=== PATIENT | female | born 1965 | race Caucasian/White ===

== ENCOUNTER 2018-01-05 04:15 | Emergency (ER) | payer OTHER ==
[~2018-01-05] VITALS: Ht 167.6 cm; Wt 59.4 kg
[2018-01-05] MEDS ORDERED: ONDANSETRON 4 MG/2 ML VIAL ONE (04:24)
[2018-01-05] MEDS ORDERED: NS(*) 0.9% 1000 ML BAG 1,000 ML IV ONE ×2 (04:29→04:40)
[2018-01-05] MEDS ORDERED: fentaNYL CITR 100 MCG/2 ML AMP IVP ONE ×2 (04:40→05:55)
[2018-01-05] MEDS ORDERED: DICYCLOMINE HCL 10 MG CAP PO ONE (04:40)
[2018-01-05] MEDS ORDERED: DIAZEPAM 10 MG/2 ML SYR IVP ONE (04:40)
[2018-01-05 04:43] LABS: PLATELET COUNT, AUTOMATED 570 K/uL (150-450)
[2018-01-05] MEDS ORDERED: IOPAMIDOL 76% 75 ML INFUS BTL 75 ML ONE (05:41)
[2018-01-05] MEDS ORDERED: NS 0.9% 20 ML SDV 60 ML ONE (05:41)
--- NOTE | 2018-01-05 06:51 | RADIOLOGY IMAGING REPORT ---
FACILITY: [facility] - [place] PATIENT NAME: Marilin Mccabe : 1965 MR: [id number] V: [id number] EXAM DATE: ORDERING PHYSICIAN: JENNIFER JJ TECHNOLOGIST: Location: [facility] - [place], [place] Patient: Marilin Mccabe : 1965 Visit/Account:[id number] Date of Sevice: 01/05/2018 ABDOMEN/PELVIS WITH CONTRAST COMPARISONS: None. ADDITIONAL PERTINENT HISTORY: Upper abdominal pain and vomiting for one day. History of appendectomy 20+ years ago. TECHNIQUE: Multiple axial images were obtained from the lung bases through the lesser trochanters bef ore and after the IV administration of IV contrast. One of the following dose optimization technique s was utilized in the performance of this exam: Automated exposure control; adjustment of the mA and/ or kV according to the patient's size; or use of an iterative reconstruction technique. Specific de tails can be referenced in the facility's radiology CT exam operational policy. CONTRAST: 75 ml of Isovue-370 FINDINGS: Lung bases: Minimal bibasilar atelectatic change. Free air and free fluid: None. Liver: Negative. Spleen: Negative. Kidneys, ureters and urinary bladder: Small low-attenuation lesions involving both kidneys consistent with simple cysts. Adrenal glands: Negative. Pancreas: Negative. Gallbladder: Negative. Bowel and mesentery: Negative.. Pelvic contents: Negative Lymph node assessment: Negative. Retroperitoneum: Negative. Abdominal vasculature: Mild calcified atherosclerotic plaque involving the abdominal aorta. Surrounding soft tissues: Negative. Osseous structures: Mild retrolisthesis of L1 on L2. Mild anterior listhesis of L4 on L5. Spondylitic change involving the lower lumbar spine. No acute appearing bony abnormalities. IMPRESSION: No acute intra-abdominal or intrapelvic process. Report Dictated By: Thomas Young MD at 01/05/2018 6:42 AM Report E-Signed By: Thomas Young MD at 01/05/2018 6:47 AM WSN:[id number]
[2018-01-05] MEDS ORDERED: KETOROLAC 30 MG/ML VIAL IVP ONE (08:10)
--- NOTE | 2018-01-05 08:16 | RADIOLOGY IMAGING REPORT ---
FACILITY: [facility] - [place] PATIENT NAME: Marilin Mccabe : 1965 MR: [id number] V: [id number] EXAM DATE: ORDERING PHYSICIAN: JOE ARIAS TECHNOLOGIST: Location: [facility] - [place] Patient: Marilin Mccabe : 1965 Visit/Account:[id number] Date of Sevice: 01/05/2018 EXAMINATION: Chest radiographs 2 views HISTORY: Abdominal pain. COMPARISON: None. FINDINGS: PA and lateral views of the chest are submitted. Lines/tubes: None. Lungs/pleura: No focal consolidation or pleural effusion. Heart: Negative. Mediastinum: Negative. Bony structures/body wall: Negative. Visualized upper abdomen: No free air. IMPRESSION: No radiographic evidence of acute cardiopulmonary disease. Report Dictated By: Soila Hernandez MD at 01/05/2018 8:11 AM Report E-Signed By: Soila Hernandez MD at 01/05/2018 8:12 AM WSN:[id number]
[2018-01-05] MEDS ORDERED: METR-1 PO (08:49)
--- NOTE | 2018-01-05 08:49 | ER Report ---
History and Physical Time Seen By MD: 10:48 Hx. of Stated Complaint: PT HAS BEEN SICK FOR TWO DAYS. HAS HAD LARGE AMOUNTS OF DIARRHEA. REPORTS THAT SHE "FEELS AWFUL". THINKS SHE MAY HAVE BEEN HAVING FEVERS. NAUSEA AND VOMITING TODAY ONLY. HPI/ROS Unable to obtain Allergies: Coded Allergies: BEE STINGS (Verified Allergy, Intermediate, RASH, 01/05/18) Home Meds Active Scripts Metronidazole (FLAGYL) 500 Mg Tablet, 500 MG PO BID for 10 Days, #20 TAB Prov:JOE ARIAS MD 01/05/18 Reviewed Nurses Notes: Yes Old Medical Records Reviewed: Yes Hx Substance Use Disorder: No Hx Alcohol Use: No Constitutional Physical Exam unable to obtain Medical Decision Making Data Points Laboratory Hematology Test 01/05/18 04:25 01/05/18 04:30 01/05/18 06:00 01/05/18 07:30 Clostridium Difficile Toxin A & B Negative Clostridium difficile Antigen Negative Red Blood Count 5.82 M/uL (4.17-5.56) Mean Corpuscular Volume 93.1 fL (80.0-96.0) Mean Corpuscular Hemoglobin 31.9 pg (26.0-33.0) Mean Corpuscular Hemoglobin Concent 34.3 g/dL (32.0-36.0) Red Cell Distribution Width 13.3 % (11.5-14.5) Mean Platelet Volume 7.2 fL (7.2-11.1) Neutrophils (%) (Auto) 91.8 % (39.4-72.5) Lymphocytes (%) (Auto) 2.3 % (17.6-49.6) Monocytes (%) (Auto) 5.4 % (4.1-12.4) Eosinophils (%) (Auto) 0.3 % (0.4-6.7) Basophils (%) (Auto) 0.2 % (0.3-1.4) Nucleated RBC Relative Count (auto) 0.1 /100WBC Neutrophils # (Auto) 23.0 K/uL (2.0-7.4) Lymphocytes # (Auto) 0.6 K/uL (1.3-3.6) Monocytes # (Auto) 1.4 K/uL (0.3-1.0) Eosinophils # (Auto) 0.1 K/uL (0.0-0.5) Basophils # (Auto) 0.1 K/uL (0.0-0.1) Nucleated RBC Absolute Count (auto) 0.02 K/uL Peripheral Blood Smear Yes Y/N Sodium Level 139 mmol/L (137-145) Potassium Level 3.1 mmol/L (3.5-5.0) Chloride Level 95 mmol/L (98-107) Carbon Dioxide Level 30 mmol/L (22-31) Blood Urea Nitrogen 11 mg/dl (7-18) Creatinine 0.90 mg/dl (0.52-1.04) Glomerular Filtration Rate Calc > 60.0 Random Glucose 165 mg/dl (75-110) Calcium Level 10.1 mg/dl (8.4-10.2) Total Bilirubin 0.7 mg/dl (0.2-1.3) Aspartate Amino Transf (AST/SGOT) 41 U/L (0-35) Alanine Aminotransferase (ALT/SGPT) 45 U/L (0-56) Alkaline Phosphatase 121 U/L (0-126) Total Protein 8.3 gm/dl (6.3-8.2) Albumin 4.5 g/dl (3.5-5.0) Lipase 73 U/L (23-300) Urine Color Ashley Urine Clarity Cloudy Urine pH 5.0 pH (4.8-9.5) Urine Specific [place] 1.025 Urine Protein 100 mg/dL (NEGATIVE) Urine Glucose (UA) Negative mg/dL (NEGATIVE) Urine Ketones Trace mg/dL (NEGATIVE) Urine Blood Small (NEGATIVE) Urine Nitrite Negative (NEGATIVE) Urine Bilirubin Small (NEGATIVE) Urine Urobilinogen 2.0 mg/dL (0.2-1.9) Urine Leukocyte Esterase Negative (NEGATIVE) Urine RBC 9 /HPF (0-2/HPF) Urine WBC 2 /HPF (0-5/HPF) Urine Squamous Epithelial Cells Many /LPF (</=FEW) Urine Bacteria Negative /HPF (NONE-FEW) Urine Hyaline Casts Many /LPF (NONE-FEW) Urine Mucus Few /HPF (NONE-FEW) Influenza Virus Type A (PCR) Negative (NEGATIVE) Influenza Virus Type B (PCR) Negative (NEGATIVE) Chemistry Test 01/05/18 04:25 01/05/18 04:30 01/05/18 06:00 2/7/18 07:30 Clostridium Difficile Toxin A & B Negative Clostridium difficile Antigen Negative White Blood Count 25.1 k/uL (4.5-11.0) Red Blood Count 5.82 M/uL (4.17-5.56) Hemoglobin 18.6 g/dL (12.0-16.0) Hematocrit 54.2 % (34.0-47.0) Mean Corpuscular Volume 93.1 fL (80.0-96.0) Mean Corpuscular Hemoglobin 31.9 pg (26.0-33.0) Mean Corpuscular Hemoglobin Concent 34.3 g/dL (32.0-36.0) Red Cell Distribution Width 13.3 % (11.5-14.5) Platelet Count 570 K/uL (150-450) Mean Platelet Volume 7.2 fL (7.2-11.1) Neutrophils (%) (Auto) 91.8 % (39.4-72.5) Lymphocytes (%) (Auto) 2.3 % (17.6-49.6) Monocytes (%) (Auto) 5.4 % (4.1-12.4) Eosinophils (%) (Auto) 0.3 % (0.4-6.7) Basophils (%) (Auto) 0.2 % (0.3-1.4) Nucleated RBC Relative Count (auto) 0.1 /100WBC Neutrophils # (Auto) 23.0 K/uL (2.0-7.4) Lymphocytes # (Auto) 0.6 K/uL (1.3-3.6) Monocytes # (Auto) 1.4 K/uL (0.3-1.0) Eosinophils # (Auto) 0.1 K/uL (0.0-0.5) Basophils # (Auto) 0.1 K/uL (0.0-0.1) Nucleated RBC Absolute Count (auto) 0.02 K/uL Peripheral Blood Smear Yes Y/N Glomerular Filtration Rate Calc > 60.0 Calcium Level 10.1 mg/dl (8.4-10.2) Total Bilirubin 0.7 mg/dl (0.2-1.3) Aspartate Amino Transf (AST/SGOT) 41 U/L (0-35) Alanine Aminotransferase (ALT/SGPT) 45 U/L (0-56) Alkaline Phosphatase 121 U/L (0-126) Total Protein 8.3 gm/dl (6.3-8.2) Albumin 4.5 g/dl (3.5-5.0) Lipase 73 U/L (23-300) Urine Color Ashley Urine Clarity Cloudy Urine pH 5.0 pH (4.8-9.5) Urine Specific [place] 1.025 Urine Protein 100 mg/dL (NEGATIVE) Urine Glucose (UA) Negative mg/dL (NEGATIVE) Urine Ketones Trace mg/dL (NEGATIVE) Urine Blood Small (NEGATIVE) Urine Nitrite Negative (NEGATIVE) Urine Bilirubin Small (NEGATIVE) Urine Urobilinogen 2.0 mg/dL (0.2-1.9) Urine Leukocyte Esterase Negative (NEGATIVE) Urine RBC 9 /HPF (0-2/HPF) Urine WBC 2 /HPF (0-5/HPF) Urine Squamous Epithelial Cells Many /LPF (</=FEW) Urine Bacteria Negative /HPF (NONE-FEW) Urine Hyaline Casts Many /LPF (NONE-FEW) Urine Mucus Few /HPF (NONE-FEW) Influenza Virus Type A (PCR) Negative (NEGATIVE) Influenza Virus Type B (PCR) Negative (NEGATIVE) Urinalysis Test 01/05/18 06:00 Urine Color Ashley Urine Clarity Cloudy Urine pH 5.0 pH (4.8-9.5) Urine Specific [place] 1.025 Urine Protein 100 mg/dL (NEGATIVE) Urine Glucose (UA) Negative mg/dL (NEGATIVE) Urine Ketones Trace mg/dL (NEGATIVE) Urine Blood Small (NEGATIVE) Urine Nitrite Negative (NEGATIVE) Urine Bilirubin Small (NEGATIVE) Urine Urobilinogen 2.0 mg/dL (0.2-1.9) Urine Leukocyte Esterase Negative (NEGATIVE) Urine RBC 9 /HPF (0-2/HPF) Urine WBC 2 /HPF (0-5/HPF) Urine Squamous Epithelial Cells Many /LPF (</=FEW) Urine Bacteria Negative /HPF (NONE-FEW) Urine Hyaline Casts Many /LPF (NONE-FEW) Urine Mucus Few /HPF (NONE-FEW) Microbiology Microbiology Date/Time Source Procedure Growth Status 01/05/18 04:25 Stool Stool Culture - Final NORMAL BOWEL ALVIN PRESENT... Complete ED Course/Re-evaluation ED Course follow up to labs and imaging patient discharged after sign out from Dr. Olson Decision to Disposition Date: Mar 08, 2018 Decision to Disposition Time: 10:49 Depart Departure Latest Vital Signs Impression: Primary Impression: Dehydration Additional Impression: Enteritis Condition: Improved Disposition: HOME OR SELF-CARE Referrals: JILLIAN COVINGTON 5 Days New Scripts Metronidazole (FLAGYL) 500 Mg Tablet 500 MG PO BID for 10 Days, #20 TAB Prov: JOE ARIAS MD 01/05/18 Patient Instructions: Dehydration (DC) Problem Qualifiers JOE ARIAS MD Jan 05, 2018 08:49
[2018-01-05 09:06] VITALS: BP 89/53
== END 2018-01-05 09:22 | disposition home or self-care (01) ==
LOC: ER 04:20
DX: K52.9 Noninfective gastroenteritis and colitis, unspecified (principal); E86.0 Dehydration
CPT/HCPCS: 71046; 74177; 81001; 83690; 85025; 87045; 87324; 87449; 87502; 96361; 96374; 96375; 96376; 99284; J1885; J2405; J3010; J3360; J7030; J7050; Q9967; 82040; 82247; 82310; 82374; 82435; 82565; 82947; 84075; 84132; 84155; 84295; 84450; 84460; 84520